=== PATIENT | male | born 1945 | race Caucasian/White ===

== ENCOUNTER 2022-12-19 00:10 | Emergency (ER) | payer MEDICARE, BC ==
[~2022-12-19] VITALS: Ht 185.4 cm; Wt 117.9 kg
--- NOTE | 2022-12-19 00:19 | NUR ---
BIBPA FROM SNF FOR K+ LEVEL OF 6. PT AAOX4, IN NAD. PLACED COMFORTABLY IN BED, VITALS CHECKED.
--- NOTE | 2022-12-19 00:40 | NUR ---
STROBOROMA OPERATOR AT PT'S BEDSIDE
[2022-12-19 02:09] LABS: CALCIUM, SERUM 9.1 mg/dL (8.5-10.1); CREATININE 1.2 mg/dL (0.6-1.3)
--- NOTE | 2022-12-19 02:19 | NUR ---
REPORT GIVEN TO MAGDY FROM [facility]
--- NOTE | 2022-12-19 02:19 | NUR ---
[facility] ETA CALLED ETA 75-90 MINUTES.
--- NOTE | 2022-12-19 04:09 | NUR ---
REPORT GIVEN TO BHARAT Ortiz/ [facility]
[2022-12-19 04:26] VITALS: BP 124/77
== END 2022-12-19 04:27 ==
LOC: ER 00:13
DX: Z71.1 Person with feared health complaint in whom no diagnosis is made (principal)
CPT/HCPCS: 36415; 80048-TC

== ENCOUNTER 2023-01-07 15:13 | Inpatient (IN) | payer MEDICARE, BC ==
[~2023-01-07] VITALS: Ht 185.4 cm; Wt 123.5 kg
--- NOTE | 2023-01-07 15:26 | NUR ---
CALLED [facility] [phone] PER KOFI PT DISCHARGED ON December TO [facility]. [phone] [id number] [facility] [place]
--- NOTE | 2023-01-07 15:28 | NUR ---
CALLED [facility]. [facility] [phone] [id number] [place], [place]
--- NOTE | 2023-01-07 15:36 | NUR ---
, KWADWO WEBER [phone]
[2023-01-07] MEDS ORDERED: MULT-447 PO (15:38)
[2023-01-07] MEDS ORDERED: WARF3TAB59 PO (15:38)
[2023-01-07] MEDS ORDERED: CICL6.6S5 TP (15:38)
[2023-01-07] MEDS ORDERED: PREG-57 PO (15:38)
[2023-01-07] MEDS ORDERED: MAG30ORA PO (15:38)
[2023-01-07] MEDS ORDERED: AMIN30LI2 PO (15:38)
[2023-01-07] MEDS ORDERED: INSU100V7 SQ (15:38)
[2023-01-07] MEDS ORDERED: FURO-145 PO (15:38)
[2023-01-07] MEDS ORDERED: ACET-868 PO (15:38)
[2023-01-07] MEDS ORDERED: FAMO20TA8 PO (15:38)
[2023-01-07] MEDS ORDERED: OXYC15TA2 PO (15:38)
[2023-01-07] MEDS ORDERED: INSU100V27 SQ ×2 (15:38)
[2023-01-07] MEDS ORDERED: TAMS-12 PO (15:38)
[2023-01-07] MEDS ORDERED: GLUC1KIT IM (15:38)
[2023-01-07] MEDS ORDERED: DIPH25CA51 PO (15:38)
[2023-01-07] MEDS ORDERED: POLY15DR40 EACHEYE (15:38)
[2023-01-07] MEDS ORDERED: ECON30CR4 TD (15:38)
[2023-01-07] MEDS ORDERED: AMIO200T5 PO (15:38)
[2023-01-07 16:46] LABS: BASOPHILS # (AUTO) 0.1 K/uL (0.0-0.2); BASOPHILS % (AUTO) 1.2 % (0.0-2.0); HEMATOCRIT 37 % (39-51); HEMOGLOBIN 11.7 g/dL (13.5-17.5); LYMPHOCYTES # (AUTO) 1.2 K/uL (0.8-4.8); LYMPHOCYTES % (AUTO) 11.4 % (20.0-44.0); MEAN CORPUSCULAR HGB CONC 32 g/dl (31.0-36.0); MEAN CORPUSCULAR VOLUME 93 fL (80-96); MONOCYTES # (AUTO) 0.7 K/uL (0.1-1.30); MONOCYTES % (AUTO) 6.3 % (2.0-12.0); NEUTROPHILS # (AUTO) 8.5 K/uL (1.8-8.9); NEUTROPHILS % (AUTO) 79.1 % (43.0-81.0); PLATELET COUNT (AUTO) 347 K/uL (150-450); RED BLOOD CELL COUNT(AUTO) 3.99 MIL/uL (4.5-6.0); WHITE BLOOD COUNT (AUTO) 10.8 K/uL (4.3-11.0)
[2023-01-07 16:50] LABS: CALCIUM, SERUM 8.8 mg/dL (8.5-10.1); CARBON DIOXIDE 28 mmol/L (21-32); CHLORIDE 105 mmol/L (98-107); CREATININE 1.1 mg/dL (0.6-1.3); GLUCOSE 195 mg/dL (74-106); SODIUM SERUM 137 mmol/L (136-145); UREA NITROGEN, BLOOD 35 mg/dL (7-18)
[2023-01-07 17:42] LABS: POTASSIUM 5.1 mmol/L (3.5-5.1)
[2023-01-07 17:44] LABS: ALANINE AMINOTRANSFERASE 37 U/L (12-78); ALKALINE PHOSPHATASE 106 U/L (46-116); ASPARTATE AMINOTRANSFERASE 30 U/L (15-37); BILIRUBIN,DIRECT 0.2 mg/dL (0.0-0.2); BILIRUBIN,TOTAL 0.5 mg/dL (0.2-1.0)
[2023-01-07 17:45] LABS: ALBUMIN 2.8 g/dL (3.4-5.0); TOTAL PROTEIN, SERUM 6.4 g/dL (6.4-8.2)
[2023-01-07] MEDS ORDERED: FUROSEMIDE 40 MG/4 ML VIAL IV ONE (18:30)
[2023-01-07] MEDS ORDERED: ENOXAPARIN SODIUM 60 MG/0.6 ML DISP.SYRIN SQ ONE ×2 (18:30→18:50)
[2023-01-07] MEDS ORDERED: FUROSEMIDE 40 MG/4 ML VIAL ONE (18:50)
--- NOTE | 2023-01-07 19:03 | NUR ---
Simple Mask titrated down to 6L
[2023-01-07] MEDS ORDERED: Z GUARD REMEDY 4 OZ OINT TP PRN (19:30)
[2023-01-07] MEDS ORDERED: ZOLPIDEM TARTRATE 5 MG TABLET PO PRN (19:30)
[2023-01-07] MEDS ORDERED: ASPIRIN 300 MG/SUPP.RECT RC SCH (19:30)
[2023-01-07] MEDS ORDERED: ACETAMINOPHEN 325 MG TABLET PO PRN (19:30)
[2023-01-07] MEDS ORDERED: ONDANSETRON HCL/PF 4 MG/2 ML VIAL IVP PRN (19:30)
--- NOTE | 2023-01-07 21:02 | NUR ---
report given to rn
--- NOTE | 2023-01-07 21:40 | NUR ---
ADMISSION NOTES, RECEIVED PATIENT FROM ER DEPARTMENT VIA GURNEY ACCOMPANIED BY 2 NURSES, PATIENT AWAKE A/0 X2, [facility] WITH ADMITTING DX, NSTEMI, DENIES ANY CHEST PAIN AT THIS TIME, PATIENT AT 8L VIA SIMPLE MASK, NO SOB AT REST BUT SOB AT EXERTION, AFEBRILE ATTACHED TO TELE MONITOR, IV SITE LEFT AV 20G, PATENT AND INTACT, COLOSTOMY IN PLACE IN LEFT UPPER QUADRANT WITH SEMI LIQUID YELLOW STOOL, NOTED WITH MID ABDOMINAL INCISION HEALED SEMI OPEN SKIN, BILATERAL LE CABS AND REDNESS, + 4 EDEMA ALS O NOTED, BILATERAL REDNESS IN BUTTOCK, PT STATED IS BECAUSE THE COMMODE, LEFT FORE ARM SKIN TEAR 10 INCH DIEGO, HE STATED HE HAD A FALL, HEELS DRYNESS AND PEELING SKIN NOTED, LEFT GROIN/PERINEAL REDNESS BLEEDING,RIGHT FOOT THIRD TOE MISSING NAIL, LEFT UNDER BREAST FOLD REDNESS PLEASE REFER TO ADMISSION PICTURES, AFEBRILE WITH STABLE VITAL SINGS, O2 94% AT 8L SIMPLE MASK, WOUND CONSULT TO FOLLOW WITH SKIN ISSUES, PATIENT DOES NOT REMEMBER FROM WHICH FACILITY HE CAME, ACCORDING TO REPORT FROM ER AN INDIVIDUAL LEFT PATIENT IN WAITING ROOM AND TOOK OFF IMMEDIATELY, BED BATH GIVEN UPON ADMISSION, WILL CONTINUE TO MONITOR CLOSELY.
--- NOTE | 2023-01-07 21:50 | NUR ---
PATIENT SINUS RHYTHM/SINUS MARY WITH OCCASIONAL PACS.
[2023-01-07] MEDS: ATORVASTATIN 10 MG TABLET PO SCH (22:09)
--- NOTE | 2023-01-07 23:48 | NUR ---
RELAYED TROPONIN LEVELS TO LEONARDA MORALES AT THIS TIME, TROP: 144
--- NOTE | 2023-01-08 07:00 | NUR ---
GARNETT FEEDER CLOSING NOTE PT RESTING IN BED, ASLEEP, EASY TO AROUSE, AFEBRILE, A&OX3, ABLE TO MAKE NEEDS KNOWN, BREATHING EVEN AND UNLABORED, ON 8L VIA SIMPLE MASK, COLOSTOMY BAG INTACT, YELLOW LIQUID STOOL NOTED, ALL DUE MEDS GIVEN PER MD ORDERS, TOLERATED WELL, ALL BASIC NEEDS MET AND ANTICIPATED, ALL SAFETY MEASURES ARE IN PLACE, CALL LIGHT WITH IN REACH WILL CONTINUE TO MONITOR
[2023-01-08 07:09] LABS: BASOPHILS # (AUTO) 0.1 K/uL (0.0-0.2); BASOPHILS % (AUTO) 0.7 % (0.0-2.0); EOSINOPHILS % (AUTO) 4.2 % (0.0-6.0); HEMATOCRIT 36 % (39-51); LYMPHOCYTES # (AUTO) 1.3 K/uL (0.8-4.8); LYMPHOCYTES % (AUTO) 16.5 % (20.0-44.0); MEAN CORPUSCULAR HGB CONC 30 g/dl (31.0-36.0); MEAN CORPUSCULAR VOLUME 96 fL (80-96); MONOCYTES # (AUTO) 0.9 K/uL (0.1-1.30); NEUTROPHILS # (AUTO) 5.2 K/uL (1.8-8.9); NEUTROPHILS % (AUTO) 66.6 % (43.0-81.0); PLATELET COUNT (AUTO) 300 K/uL (150-450); RED BLOOD CELL COUNT(AUTO) 3.79 MIL/uL (4.5-6.0); WHITE BLOOD COUNT (AUTO) 7.8 K/uL (4.3-11.0)
[2023-01-08 07:21] LABS: CALCIUM, SERUM 8.7 mg/dL (8.5-10.1); CARBON DIOXIDE 25 mmol/L (21-32); CHLORIDE 108 mmol/L (98-107); CREATININE 1.1 mg/dL (0.6-1.3); GLUCOSE 149 mg/dL (74-106); MAGNESIUM 2.5 mg/dL (1.8-2.4); PHOSPHORUS 3.5 mg/dL (2.5-4.9); POTASSIUM 4.9 mmol/L (3.5-5.1); SODIUM SERUM 138 mmol/L (136-145); UREA NITROGEN, BLOOD 35 mg/dL (7-18)
[2023-01-08 07:28] LABS: CHOLESTEROL 178 mg/dL (<200); HDL CHOLESTEROL 57 mg/dL (40-60); LDL 107 mg/dL (0-99); TRIGLYCERIDES 115 mg/dL (30-150)
--- NOTE | 2023-01-08 07:37 | NUR ---
FIRE MARSHAL REFINERY OPENING NOTE PATIENT RECEIVED IN BED SLEEPING. EASILY AROUSABLE. ON 8L VIA SIMPLE MASK WITH BREATHING EVEN AND UNLABORED AND NO S/S OF SOB OR RESPIRATORY DISTRESS AT REST. IV SITE ON LAC 20G, PATENT AND INTACT. COLOSTOMY IN PLACE IN LEFT UPPER QUADRANT WITH SEMI LIQUID YELLOW STOOL, Addendum: 01/08/23 at 0739 by ELLA HINDS RN PLEASE DISREGARD
--- NOTE | 2023-01-08 07:39 | NUR ---
RN HEART OPENING NOTE PATIENT RECEIVED IN BED SLEEPING. EASILY AROUSABLE. ON 8L VIA SIMPLE MASK WITH BREATHING EVEN AND UNLABORED AND NO S/S OF SOB OR RESPIRATORY DISTRESS AT REST. IV SITE ON LAC 20G, PATENT AND INTACT. COLOSTOMY IN PLACE IN LEFT UPPER QUADRANT WITH SEMI LIQUID YELLOW STOOL. SAFETY PRECAUTIONS IN PLACE WITH BED IN LOWEST LOCKED POSITION, SIDE RAILS UP X3, BED ALARM ON, AND CALL LIGHT AND TABLE WITHIN REACH. WILL CONTINUE TO MONITOR.
[2023-01-08 08:00] VITALS: BP 131/54
[2023-01-08] MEDS ORDERED: ASPIRIN 81 MG TAB.CHEW PO ONE (09:00)
[2023-01-08 12:00] VITALS: BP 135/69
[2023-01-08 16:00] VITALS: BP 114/60
[2023-01-08] MEDS: HYDROCODONE/APAP 5/325MG TABLET PO PRN ×2 (18:02→23:06)
[2023-01-08] MEDS: SERTRALINE HCL 25 MG TABLET PO SCH (18:03)
[2023-01-08] MEDS: ENOXAPARIN SODIUM 40 MG/0.4 ML DISP.SYRIN SQ SCH (18:06)
--- NOTE | 2023-01-08 19:32 | NUR ---
RN OPENING NOTES: RECEIVED PATIENT IN BED, AWAKE, ALERT AND ORIENTED X4 AND VERBALLY RESPONSIVE. ON 8L VIA SIMPLE MASK AND PT TOLERATED WELL. PT KEPT REMOVING HIS MASK. REQUEST PT NOT TO REMOVE HIS MASK. STILL BREATHING EVEN AND UNLABORED. IV ACCESS ON LAC #20G, INTACT AND PATENT.NO S/S OF INFILTRATIONS. NOTED COLOSTOMY IN PLACE AT LEFT UPPER QUADRANT WITH LIQUID YELLOW STOOL. NO C/O PAIN OR DISCOMFORT. NO ACUTE DISTRESS.ALL SAFETY PRECAUTIONS IN PLACE. BED IN LOWEST POSITION AND LOCKED. SIDE RAILS UP X3, BED ALARM ON, PLACE CALL LIGHT WITH IN REACH. WILL CONTINUE TO MONITOR
--- NOTE | 2023-01-08 19:38 | NUR ---
BACK UP MACHINE OPERATOR CLOSING NOTE PATIENT IN BED WATCHING TV. ALERT AND ORIENTED X4. ON 8L VIA SIMPLE MASK WITH BREATHING EVEN AND UNLABORED AND NO S/S OF SOB OR RESPIRATORY DISTRESS AT REST. IV SITE ON LAC 20G, PATENT AND INTACT. COLOSTOMY IN PLACE IN LEFT UPPER QUADRANT WITH SEMI LIQUID YELLOW STOOL. ALL DUE MEDS GIVEN AND PATIENT KEPT CLEAN AND COMORTABLE. SAFETY PRECAUTIONS IN PLACE WITH BED IN LOWEST LOCKED POSITION, SIDE RAILS UP X3, BED ALARM ON, AND CALL LIGHT AND TABLE WITHIN REACH. WILL ENDORSE TO ONCOMING SHIFT FOR ASHLEY.
--- NOTE | 2023-01-08 19:50 | NUR ---
RN NOTES: RECEIVED CRITICAL LAB RESULT. PT'S TROPONIN LEVEL 128 BEFORE IT WAS 141. TRENDING DOWN. WILL CONTINUE TO MONITOR
[2023-01-08 20:00] VITALS: BP 122/72
[2023-01-08] MEDS ORDERED: MUPIROCIN OINT 2% 22 GM TUBE NS SCH (21:00)
[2023-01-08] MEDS: ATORVASTATIN 10 MG TABLET PO SCH (22:21)
--- NOTE | 2023-01-08 23:09 | NUR ---
RN NOTES: PT C/O MODERATE GENERALIZED BODY PAIN, NORCO GIVEN PRN ORDERED. AMBIEN GIVEN FOR UNABLE TO SLEEP. WILL CONTINUE TO MONITOR
[2023-01-09] VITALS: BP 123/61
[2023-01-09 04:00] VITALS: BP 115/60
[2023-01-09] MEDS: HYDROCODONE/APAP 5/325MG TABLET PO PRN ×3 (06:03→21:47)
--- NOTE | 2023-01-09 06:47 | NUR ---
RN CLOSING NOTES: PATIENT IN BED, AWAKE, ALERT AND ORIENTED X4 AND VERBALLY RESPONSIVE. ON 8L VIA SIMPLE MASK AND PT TOLERATED WELL. O2 SAT 99%. BREATHING EVEN AND UNLABORED. IV ACCESS ON LAC #20G, INTACT AND PATENT.NO S/S OF INFILTRATIONS. NOTED COLOSTOMY IN PLACE AT LEFT UPPER QUADRANT WITH LIQUID YELLOW STOOL. 200CC OUTPUT. NORCO GIVEN FOR GENERALIZED BODY PAIN, HEADACHE. NO ACUTE DISTRESS. ALL DUE MEDS GIVEN ORDERED. ALL SAFETY PRECAUTIONS IN PLACE. BED IN LOWEST POSITION AND LOCKED. SIDE RAILS UP X3, BED ALARM ON, PLACE CALL LIGHT WITH IN REACH. WILL ENDORSE TO MORNING SHIFT NURSE.
--- NOTE | 2023-01-09 07:36 | NUR ---
CUSTOMER SERVICE MANAGER OPENING NOTE PATIENT RECEIVED IN BED SLEEPING. ON 8L VIA SIMPLE MASK WITH BREATHING EVEN AND UNLABORED. IV ACCESS ON LAC #20G, INTACT AND PATENT. NOTED COLOSTOMY IN PLACE AT LEFT UPPER QUADRANT WITH LIQUID YELLOW STOOL. ALL SAFETY PRECAUTIONS IN PLACE WITH BED IN LOWEST LOCKED POSITION, SIDE RAILS UP X3, BED ALARM ON, AND CALL LIGHT AND TABLE WITHIN REACH. WILL CONTINUE TO MONITOR.
[2023-01-09 08:00] VITALS: BP 134/70
--- NOTE | 2023-01-09 09:45 | NUR ---
POSITIVE FOR MRSA OF NARES ORDER FOR OINTMENT PLACED
--- NOTE | 2023-01-09 10:12 | NUR ---
WOUND CARE CONSULT: PT PRESENTS WITH MULTIPLE SKIN ISSUES INCLUDING SACRAL DEEP TISSUE INJURY, BILATERAL LOWER LEG REDNESS WITH PEELING SKIN TO LEFT HEEL, LEFT ARM LONG AREA OF EXCORIATION AND ABDOMINAL WOUND, ALL PRESENT ON ADMISSION. DISCUSSED SKIN PROTECTION AND WOUND CARE RECOMMENDATIONS WITH NURSING STAFF. DR GUY HORVATH CALLED FOR SURGICAL CONSULT AND DR PURI FOR DPM CONSULT. MD IN AGREEMENT WITH PLAN OF CARE. Addendum: 01/09/23 at 1015 by MAXIMO ALEGRE WNDNU Amended: Links added.
[2023-01-09 10:36] LABS: ABG BASE EXCESS 1.9 mmol/L; ABG OXYGEN SATURATION 98.6 % (92.0-98.5); ABG PCO2 53.8 mmHg (35.0-45.0); ABG PH 7.341 (7.350-7.450); ABG PO2 134.7 mmHg (75.0-100.0); AaDO2 233.9 mmHg; COHb 0.6 % (0.5-1.5); MetHb 0.3 % (0.0-1.5); O2Hb 97.7 % (94.0-97.0); SITE, ABG Right Radial; VENT MODE, BG 10 LPM SIMPLE MASK
[2023-01-09] MEDS: NEOMY SULF/BACITRAC ZN/POLY 15 GM TUBE TP SCH (11:05)
[2023-01-09] MEDS: MUPIROCIN OINT 2% 22 GM TUBE NS SCH ×2 (11:05→21:40)
[2023-01-09] MEDS: SILVER SULFADIAZINE CREAM 25 GM TUBE TP SCH (11:05)
[2023-01-09 12:00] VITALS: BP 118/71
[2023-01-09] MEDS ORDERED: diphenhydrAMINE HCL 25 MG CAPSULE PO PRN (12:30)
[2023-01-09] MEDS ORDERED: MAG HYDROX/AL HYDROX/SIMETH 30 ML UDC PO PRN (12:30)
[2023-01-09] MEDS ORDERED: DEXTROSE 50%-WATER 50 ML DISP.SYRIN IV PRN (12:30)
[2023-01-09] MEDS ORDERED: POLYVINYL ALCOHOL 15 ML BOTTLE EACHEYE PRN (12:30)
[2023-01-09 16:00] VITALS: BP 115/41
[2023-01-09] MEDS: CLOTRIMAZOLE 1% 15 GM TUBE TP SCH ×2 (17:00→21:40)
[2023-01-09] MEDS: SERTRALINE HCL 25 MG TABLET PO SCH (18:21)
[2023-01-09] MEDS: FUROSEMIDE 20 MG TABLET PO SCH (18:22)
[2023-01-09] MEDS: PREGABALIN 25 MG CAPSULE PO SCH (18:22)
[2023-01-09] MEDS: AMIODARONE HCL 200 MG TABLET PO SCH (18:22)
[2023-01-09] MEDS: FAMOTIDINE (20 MG) 20 MG TABLET PO SCH (18:22)
[2023-01-09] MEDS: ENOXAPARIN SODIUM 40 MG/0.4 ML DISP.SYRIN SQ SCH (18:24)
[2023-01-09] MEDS: ECONAZOLE NITRATE CREAM 15 GM TUBE TP SCH (18:32)
[2023-01-09] MEDS: BLOOD SUGAR DIAGNOSTIC 1 EACH STRIP IN SCH ×2 (18:33→21:48)
[2023-01-09] MEDS: INSULIN REGULAR, HUMAN 100 UNIT/ML 3 ML VIAL SQ PRN ×2 (18:34→21:50)
--- NOTE | 2023-01-09 19:42 | NUR ---
LEGISLATORS CLOSING NOTE PATIENT IN BED SLEEPING INTERMITTENTLY. ON 8L VIA SIMPLE MASK WITH BREATHING EVEN AND UNLABORED. IV ACCESS ON LAC #20G, INTACT AND PATENT. COLOSTOMY IN PLACE AT LEFT UPPER QUADRANT WITH LIQUID YELLOW STOOL. PUREWICK IN PLACE SUCTIONING JUANA COLORED URINE. ALL DUE MEDS GIVEN AND WOUND CARE PROVIDED. ALL SAFETY PRECAUTIONS IN PLACE WITH BED IN LOWEST LOCKED POSITION, SIDE RAILS UP X3, BED ALARM ON, AND CALL LIGHT AND TABLE WITHIN REACH. WILL ENDORSE TO ONCOMING SHIFT FOR ASHLEY.
[2023-01-09 20:00] VITALS: BP 126/51
[2023-01-09] MEDS: ATORVASTATIN 10 MG TABLET PO SCH (21:47)
[2023-01-09] MEDS: INSULIN GLARGINE, 100 UNIT/ML CARTRIDGE SQ SCH (21:49)
--- NOTE | 2023-01-09 21:51 | NUR ---
RN NOTES: PT C/O MODERATE GENERALIZED BODY PAIN, NORCO GIVEN. BLOOD SUGAR 113. NO COVERAGE NEEDED. LANTUS 10 UNITS GIVEN ORDERED. NO S/S OF HYPER/HYPOGLYCEMIA. WILL CONTINUE TO MONITOR
[2023-01-10] VITALS: BP 133/61
[2023-01-10 04:00] VITALS: BP 129/63
[2023-01-10] MEDS: HYDROCODONE/APAP 5/325MG TABLET PO PRN ×3 (04:37→23:02)
--- NOTE | 2023-01-10 06:44 | NUR ---
RN JANIS NOTES: PATIENT IN BED, AWAKE, ALERT AND ORIENTED X4 AND VERBALLY RESPONSIVE. ON 8L VIA SIMPLE MASK AND PT TOLERATED WELL. O2 SATURATION 96%. PT WAS INTERMITTENTLY REMOVING HIS MASK. PT WAS REMINDED NOT TO REMOVE HIS MASK. BREATHING EVEN AND UNLABORED. IV ACCESS ON LAC #20G, INTACT AND PATENT.NO S/S OF INFILTRATIONS. NOTED COLOSTOMY IN PLACE AT LEFT UPPER QUADRANT WITH LIQUID YELLOW STOOL. NO C/O PAIN OR DISCOMFORT. NO ACUTE DISTRESS.ALL SAFETY PRECAUTIONS IN PLACE. BED IN LOWEST POSITION AND LOCKED. SIDE RAILS UP X3, BED ALARM ON, PLACE CALL LIGHT WITH IN REACH. WILL ENDORSE TO THE NEXT SHIFT FOR ASHLEY.
--- NOTE | 2023-01-10 07:00 | NUR ---
RN OPENING NOTES PATIENT IN BED, AWAKE, ALERT AND ORIENTED X4 AND VERBALLY RESPONSIVE. ON 8L VIA SIMPLE MASK AND PT TOLERATED WELL. O2 SATURATION 96%. BREATHING EVEN AND UNLABORED. IV ACCESS ON LAC #20G, INTACT AND PATENT. NO S/S OF INFILTRATIONS. NOTED COLOSTOMY IN PLACE AT LEFT UPPER QUADRANT WITH LIQUID YELLOW STOOL. PATIENT DENIES ANY PAIN OR DISCOMFORT AT THIS TIME. ALL SAFETY PRECAUTIONS IN PLACE, BED IN LOWEST AND LOCKED POSITION, SIDE RAILS UP X3, BED ALARM ON, PLACE CALL LIGHT WITH IN REACH. WILL CONTINUE TO MONITOR.
[2023-01-10] MEDS: ECONAZOLE NITRATE CREAM 15 GM TUBE TP SCH ×2 (07:04→17:15)
[2023-01-10 08:00] VITALS: BP 129/58
[2023-01-10] MEDS: BLOOD SUGAR DIAGNOSTIC 1 EACH STRIP IN SCH ×4 (08:14→21:44)
[2023-01-10] MEDS: AMIODARONE HCL 200 MG TABLET PO SCH ×2 (08:42→16:27)
[2023-01-10] MEDS: FAMOTIDINE (20 MG) 20 MG TABLET PO SCH ×2 (08:42→16:25)
[2023-01-10] MEDS: MULTIVITAMINS,THERAGRAN 1 UDTAB TABLET PO SCH (08:42)
[2023-01-10] MEDS: TAMSULOSIN 0.4 MG CAP.SR.24H PO SCH (08:43)
[2023-01-10] MEDS: PREGABALIN 25 MG CAPSULE PO SCH ×2 (08:43→16:26)
[2023-01-10] MEDS: FUROSEMIDE 20 MG TABLET PO SCH ×2 (08:43→16:25)
[2023-01-10] MEDS: CLOTRIMAZOLE 1% 15 GM TUBE TP SCH ×4 (08:43→20:42)
--- NOTE | 2023-01-10 08:45 | NUR ---
RN NOTE RECEIVED VERBAL ORDERS FROM DOCTOR KAHN TO TITRATE OXYGEN FROM 8L/MIN. PATIENT ON NC AT 4L/MIN AND SATURATING AT 95%. PATIENT DENIES ANY SOB, OR DISTRESS AT THIS TIME. MD NOTIFIED.
[2023-01-10] MEDS: NEOMY SULF/BACITRAC ZN/POLY 15 GM TUBE TP SCH (09:19)
[2023-01-10] MEDS: SILVER SULFADIAZINE CREAM 25 GM TUBE TP SCH (09:19)
[2023-01-10] MEDS: MUPIROCIN OINT 2% 22 GM TUBE NS SCH ×2 (09:19→20:41)
[2023-01-10] MEDS: PROSOURCE / PROSTAT (PYXIS) 30 ML UDC PO SCH (09:20)
[2023-01-10] MEDS: methylPREDNISolone SOD SUCC 125 MG/2ML VIAL IV SCH ×2 (10:40→16:29)
[2023-01-10 12:00] VITALS: BP 113/69
[2023-01-10] MEDS: INSULIN REGULAR, HUMAN 100 UNIT/ML 3 ML VIAL SQ PRN ×3 (12:11→21:49)
[2023-01-10 16:00] VITALS: BP 145/69
[2023-01-10] MEDS: SERTRALINE HCL 25 MG TABLET PO SCH (16:43)
[2023-01-10] MEDS: WARFARIN SODIUM 2 MG TABLET PO SCH (16:47)
[2023-01-10] MEDS ORDERED: WARFARIN SODIUM 5 MG TABLET PO SCH (17:00)
[2023-01-10] MEDS ORDERED: WARFARIN SODIUM 1 MG TABLET PO SCH (17:00)
--- NOTE | 2023-01-10 19:04 | NUR ---
RN CLOSING NOTES PATIENT IN BED, AWAKE, ALERT AND ORIENTED X4 AND VERBALLY RESPONSIVE. ON 4L NS AND TOLERATED WELL. O2 SATURATION 98%. BREATHING EVEN AND UNLABORED. IV ACCESS ON LAC #20G, INTACT AND PATENT. NO S/S OF INFILTRATIONS. NOTED COLOSTOMY IN PLACE AT LEFT UPPER QUADRANT WITH LIQUID YELLOW STOOL. COLOSTOMY CARE WAS PROVIDED. PATIENT DENIES ANY PAIN OR DISCOMFORT AT THIS TIME. PATIENT WAS REPOSITIONED EVERY TWO HOURS. ALL SAFETY PRECAUTIONS IN PLACE, BED IN LOWEST AND LOCKED POSITION, SIDE RAILS UP X3, BED ALARM ON, PLACE CALL LIGHT WITH IN REACH. REPORT GIVEN TO HAND MITER OPERATOR NURSE FOR CONTINUING OF CARE.
--- NOTE | 2023-01-10 19:49 | NUR ---
RN OPENING NOTES: RECEIVED PATIENT IN BED, AWAKE, ALERT AND ORIENTED X4 AND VERBALLY RESPONSIVE. ON 4L VIA NC AND PT TOLERATED WELL. BREATHING EVEN AND UNLABORED. IV ACCESS ON LAC #20G, INTACT AND PATENT. NO S/S OF INFILTRATIONS. NOTED COLOSTOMY IN PLACE AT LEFT UPPER QUADRANT WITH LIQUID YELLOW STOOL. NO C/O PAIN OR DISCOMFORT. NO ACUTE DISTRESS. ALL SAFETY PRECAUTIONS IN PLACE. BED IN LOWEST POSITION AND LOCKED. SIDE RAILS UP X3, BED ALARM ON, PLACE CALL LIGHT WITH IN REACH. WILL CONTINUE TO MONITOR.
[2023-01-10 20:00] VITALS: BP 133/79
[2023-01-10] MEDS: IPRATROPIUM NEB FS 0.5 MG/2.5 ML AMPUL.NEB NEB SCH (20:19)
[2023-01-10] MEDS: ALBUTEROL HALF STRENGTH 1.25 MG/3 ML VIAL.NEB NEB SCH (20:19)
[2023-01-10] MEDS: ATORVASTATIN 10 MG TABLET PO SCH (21:15)
[2023-01-10] MEDS: INSULIN GLARGINE, 100 UNIT/ML CARTRIDGE SQ SCH (21:50)
--- NOTE | 2023-01-10 21:50 | NUR ---
RN NOTE BLOOD SUGAR 263. 6 UNITS OF REGULAR INSULIN GIVEN ACCORDING TO ACHS SLIDING SCALE, 10 UNITS OF LANTUS GIVEN. NO S/S OF HYPER/HYPOGLYCEMIA. WILL CONTINUE TO MONITOR
--- NOTE | 2023-01-10 23:10 | NUR ---
RN NOTES: PT C/O GENERALIZED BODY PAIN, 7/10 PAIN SCALE. NORCO GIVEN PRN ORDERED. WILL CONTINUE TO MONITOR
[2023-01-11] VITALS: BP 121/57
[2023-01-11] MEDS: ALBUTEROL HALF STRENGTH 1.25 MG/3 ML VIAL.NEB NEB SCH ×4 (01:30→19:43)
[2023-01-11] MEDS: IPRATROPIUM NEB FS 0.5 MG/2.5 ML AMPUL.NEB NEB SCH ×4 (01:30→19:43)
[2023-01-11 04:00] VITALS: BP 125/54
[2023-01-11] MEDS: HYDROCODONE/APAP 5/325MG TABLET PO PRN ×2 (04:00→21:04)
[2023-01-11] MEDS: ECONAZOLE NITRATE CREAM 15 GM TUBE TP SCH ×2 (06:03→17:07)
--- NOTE | 2023-01-11 06:50 | NUR ---
RN CLOSING NOTES PATIENT IN BED, AWAKE, ALERT AND ORIENTED X4 AND VERBALLY RESPONSIVE. ON 4L NC AND TOLERATED WELL. BREATHING EVEN AND UNLABORED, NO S/S OF RESPIRATORY DISTRESS. IV ACCESS ON LAC #20G, INTACT AND PATENT. NO S/S OF INFILTRATIONS. NOTED COLOSTOMY IN PLACE AT LEFT UPPER QUADRANT WITH LIQUID YELLOW STOOL. PATIENT DENIES ANY PAIN OR DISCOMFORT AT THIS TIME. ALL SAFETY PRECAUTIONS IN PLACE, BED IN LOWEST AND LOCKED POSITION, SIDE RAILS UP X3, BED ALARM ON, PLACE CALL LIGHT WITHIN REACH. WILL BE ENDORSED TO THE NEXT SHIFT.
--- NOTE | 2023-01-11 07:07 | NUR ---
RN OPENING NOTES PATIENT IN BED, AWAKE, ALERT AND ORIENTED X4 AND VERBALLY RESPONSIVE. ON 4L NS AND TOLERATED WELL. O2 SATURATION 97%. BREATHING EVEN AND UNLABORED. IV ACCESS ON LAC #20G, INTACT AND PATENT. NO S/S OF INFILTRATIONS. NOTED COLOSTOMY IN PLACE AT LEFT UPPER QUADRANT WITH LIQUID YELLOW STOOL. COLOSTOMY CARE WILL BE PROVIDED. PATIENT DENIES ANY PAIN OR DISCOMFORT AT THIS TIME. ALL SAFETY PRECAUTIONS IN PLACE, BED IN LOWEST AND LOCKED POSITION, SIDE RAILS UP X3, BED ALARM ON, PLACE CALL LIGHT WITHIN REACH. WILL CONTINUE TO MONITOR.
[2023-01-11] MEDS: BLOOD SUGAR DIAGNOSTIC 1 EACH STRIP IN SCH ×4 (07:38→22:43)
[2023-01-11] MEDS: INSULIN REGULAR, HUMAN 100 UNIT/ML 3 ML VIAL SQ PRN ×4 (07:42→20:54)
[2023-01-11 08:00] VITALS: BP 129/64
[2023-01-11] MEDS: NEOMY SULF/BACITRAC ZN/POLY 15 GM TUBE TP SCH (08:29)
[2023-01-11] MEDS: CLOTRIMAZOLE 1% 15 GM TUBE TP SCH ×4 (08:29→21:09)
[2023-01-11] MEDS: SILVER SULFADIAZINE CREAM 25 GM TUBE TP SCH (08:30)
[2023-01-11] MEDS: MUPIROCIN OINT 2% 22 GM TUBE NS SCH ×2 (08:30→21:09)
[2023-01-11] MEDS: PREGABALIN 25 MG CAPSULE PO SCH ×2 (08:55→16:32)
[2023-01-11] MEDS: FAMOTIDINE (20 MG) 20 MG TABLET PO SCH ×2 (08:55→16:33)
[2023-01-11] MEDS: MULTIVITAMINS,THERAGRAN 1 UDTAB TABLET PO SCH (08:55)
[2023-01-11] MEDS: methylPREDNISolone SOD SUCC 125 MG/2ML VIAL IV SCH ×2 (08:56→16:31)
[2023-01-11] MEDS: AMIODARONE HCL 200 MG TABLET PO SCH ×2 (08:56→16:31)
[2023-01-11] MEDS: TAMSULOSIN 0.4 MG CAP.SR.24H PO SCH (08:56)
[2023-01-11] MEDS: FUROSEMIDE 20 MG TABLET PO SCH ×2 (08:56→16:32)
[2023-01-11 09:05] LABS: CALCIUM, SERUM 9.1 mg/dL (8.5-10.1); CREATININE 0.8 mg/dL (0.6-1.3); POTASSIUM 4.8 mmol/L (3.5-5.1)
[2023-01-11] MEDS: PROSOURCE / PROSTAT (PYXIS) 30 ML UDC PO SCH (09:11)
[2023-01-11 12:00] VITALS: BP 138/52
[2023-01-11 16:00] VITALS: BP 121/67
[2023-01-11] MEDS: WARFARIN SODIUM 2 MG TABLET PO SCH (16:34)
[2023-01-11] MEDS: SERTRALINE HCL 25 MG TABLET PO SCH (16:40)
--- NOTE | 2023-01-11 17:06 | NUR ---
RN NOTE PATIENT COMPLAINING OF MILD BACK PAIN, TYLENOL GIVEN.
--- NOTE | 2023-01-11 19:00 | NUR ---
RN CLOSING NOTES PATIENT IN BED, AWAKE, ALERT AND ORIENTED X4 AND VERBALLY RESPONSIVE. ON 4L NS AND TOLERATED WELL. O2 SATURATION 96%. BREATHING EVEN AND UNLABORED. IV ACCESS ON LEFT WRIST #22G, INTACT AND PATENT. NO S/S OF INFILTRATIONS. NOTED COLOSTOMY IN PLACE AT LEFT UPPER QUADRANT WITH LIQUID YELLOW STOOL. COLOSTOMY CARE WAS PROVIDED. PATIENT DENIES ANY PAIN OR DISCOMFORT AT THIS TIME. ALL MEDICATIONS GIVEN. PATIENT WAS REPOSITIONED EVERY TWO HOURS. ALL SAFETY PRECAUTIONS IN PLACE, BED IN LOWEST AND LOCKED POSITION, SIDE RAILS UP X3, BED ALARM ON, CALL LIGHT AND TABLE WITHIN REACH. REPORT GIVEN TO NIGHT NURSE FOR CONTINUING OF CARE.
--- NOTE | 2023-01-11 19:30 | NUR ---
RN NOTES: RECEIVED PATIENT IN BED, AWAKE, ALERT AND ORIENTED X4 AND VERBALLY RESPONSIVE. ON 4L VIA NC AND PT TOLERATED WELL. BREATHING EVEN AND UNLABORED. IV ACCESS ON WRIST #22G, INTACT AND PATENT. NO S/S OF INFILTRATIONS. NOTED COLOSTOMY IN PLACE AT LEFT UPPER QUADRANT WITH LIQUID YELLOW STOOL. NO C/O PAIN OR DISCOMFORT. NO ACUTE DISTRESS. ALL SAFETY PRECAUTIONS IN PLACE. BED IN LOWEST POSITION AND LOCKED. SIDE RAILS UP X3, BED ALARM ON, PLACE CALL LIGHT WITH IN REACH. WILL CONTINUE TO MONITOR.
[2023-01-11 20:00] VITALS: BP 126/59
[2023-01-11] MEDS: ATORVASTATIN 10 MG TABLET PO SCH (21:05)
[2023-01-11] MEDS: INSULIN GLARGINE, 100 UNIT/ML CARTRIDGE SQ SCH (21:06)
--- NOTE | 2023-01-11 23:20 | NUR ---
RT Pt recvd at start of shift awake and verbal on 4 lpm NC . Neb tx given and mila well with no adverse reaction noted. Pt informed there is an order for NOC Bipap to use, Pt advised that he is refusing use of bipap at night. Also does not want the Q6 tx due at 01:30. seismograph supervisor informed.
[2023-01-12] VITALS: BP 131/77
[2023-01-12] MEDS: IPRATROPIUM NEB FS 0.5 MG/2.5 ML AMPUL.NEB NEB SCH ×4 (01:30→19:55)
[2023-01-12] MEDS: ALBUTEROL HALF STRENGTH 1.25 MG/3 ML VIAL.NEB NEB SCH ×4 (01:30→19:55)
[2023-01-12 04:00] VITALS: BP 132/75
--- NOTE | 2023-01-12 04:00 | NUR ---
RN NOTES PATIENT REFUSED TO BE CLEANED AND CHANGED. OFFER 3X STILL REFUSED RISK AND BENEFITS EXPLAINED
--- NOTE | 2023-01-12 07:00 | NUR ---
RN OPENING NOTES PATIENT IN BED, AWAKE, ALERT AND ORIENTED X4 AND VERBALLY RESPONSIVE. ON 4L NS AND TOLERATED WELL. O2 SATURATION 94%. BREATHING EVEN AND UNLABORED. IV ACCESS ON LEFT WRIST NIMISHA 22, INTACT AND PATENT. NO S/S OF INFILTRATIONS. NOTED COLOSTOMY IN PLACE AT LEFT UPPER QUADRANT WITH LIQUID YELLOW STOOL. COLOSTOMY CARE WILL BE PROVIDED. PATIENT DENIES ANY PAIN OR DISCOMFORT AT THIS TIME. ALL SAFETY PRECAUTIONS IN PLACE, BED IN LOWEST AND LOCKED POSITION, SIDE RAILS UP X3, BED ALARM ON, PLACE CALL LIGHT WITHIN REACH. WILL CONTINUE TO MONITOR.
[2023-01-12] MEDS: ECONAZOLE NITRATE CREAM 15 GM TUBE TP SCH ×2 (07:51→17:55)
[2023-01-12 08:00] VITALS: BP 126/78
[2023-01-12] MEDS: BLOOD SUGAR DIAGNOSTIC 1 EACH STRIP IN SCH ×4 (08:00→22:08)
[2023-01-12] MEDS: MUPIROCIN OINT 2% 22 GM TUBE NS SCH ×2 (08:22→22:07)
[2023-01-12] MEDS: CLOTRIMAZOLE 1% 15 GM TUBE TP SCH ×4 (08:22→22:08)
[2023-01-12] MEDS: NEOMY SULF/BACITRAC ZN/POLY 15 GM TUBE TP SCH (08:23)
[2023-01-12] MEDS: SILVER SULFADIAZINE CREAM 25 GM TUBE TP SCH (08:23)
[2023-01-12] MEDS: PREGABALIN 25 MG CAPSULE PO SCH ×2 (08:31→18:00)
[2023-01-12] MEDS: MULTIVITAMINS,THERAGRAN 1 UDTAB TABLET PO SCH (08:31)
[2023-01-12] MEDS: FUROSEMIDE 20 MG TABLET PO SCH ×2 (08:31→18:00)
[2023-01-12] MEDS: TAMSULOSIN 0.4 MG CAP.SR.24H PO SCH (08:31)
[2023-01-12] MEDS: FAMOTIDINE (20 MG) 20 MG TABLET PO SCH ×2 (08:31→18:01)
[2023-01-12] MEDS: methylPREDNISolone SOD SUCC 125 MG/2ML VIAL IV SCH (08:31)
[2023-01-12] MEDS: AMIODARONE HCL 200 MG TABLET PO SCH ×2 (08:31→18:00)
--- NOTE | 2023-01-12 08:44 | NUR ---
RN NOTE DOCTOR WADE BERNAL AT BED SIDE, RECEIVED ORDERS TO TITRATE NC FROM 4L/MIN TO 2 L/MIN. WILL CONTINUE TO MONITOR.
[2023-01-12] MEDS: PROSOURCE / PROSTAT (PYXIS) 30 ML UDC PO SCH (08:46)
[2023-01-12 09:31] LABS: ABG BASE EXCESS 4.5 mmol/L; ABG OXYGEN SATURATION 94.3 % (92.0-98.5); ABG PCO2 44.3 mmHg (35.0-45.0); ABG PH 7.438 (7.350-7.450); ABG PO2 69.8 mmHg (75.0-100.0); AaDO2 77.6 mmHg; COHb 0.3 % (0.5-1.5); MetHb 0.2 % (0.0-1.5); O2Hb 93.8 % (94.0-97.0); SITE, ABG Right Radial
--- NOTE | 2023-01-12 09:52 | NUR ---
RN NOTE RECEIVED ARTERIAL BLOOD GASSES RESULTS FROM RT, RESULTS SENT TO DOCTOR FRIEDA HARRIS. ALSO WAS NOTIFIED THAT PATIENT HAS BEEN REFUSING NIGHT BIPAP AND PER DOCTOR WADE BERNAL, NC WAS TITRATED FROM 4L/MIN TO 2 L/MIN AND CURRENT 02 SAT AT 95%. NO NEW ORDERS RECEIVED.
--- NOTE | 2023-01-12 11:25 | NUR ---
RN NOTE VERBAL ORDER RECEIVED FROM JIMBO ALSTON DIESEL MECHANIC FOR ORTHOSTATIC BLOOD PRESSURE READING. RESULTS, IN BED 139/68 HR 70, SITTING 120/61 HR 86, STANDING UP 148/63 HR 70. VERBAL RESULTS WERE GIVEN BACK TO DIESEL MECHANIC. Addendum: 01/12/23 at 1129 by BRANT LUCAS RN WRONG PATIENT.
[2023-01-12 12:00] VITALS: BP 136/71
[2023-01-12] MEDS: INSULIN REGULAR, HUMAN 100 UNIT/ML 3 ML VIAL SQ PRN ×3 (12:12→22:15)
[2023-01-12 16:00] VITALS: BP 127/83
[2023-01-12] MEDS: WARFARIN SODIUM 2 MG TABLET PO SCH (18:00)
[2023-01-12] MEDS: SERTRALINE HCL 25 MG TABLET PO SCH (18:01)
[2023-01-12] MEDS: HYDROCODONE/APAP 5/325MG TABLET PO PRN (18:04)
--- NOTE | 2023-01-12 18:31 | NUR ---
RN NOTE PATIENT WAS CLEARED FOR DC, NOW COMPLAINING OF GENERALIZED PAIN / NORCO GIVEN, WADE BERNAL TRUER PINION AND WHEEL NOTIFIED. PER WADE TRUER PINION AND WHEEL, PATIENT CAN STAY IN HOSPITAL AND OTHER ORDERS RECEIVED.
--- NOTE | 2023-01-12 19:49 | NUR ---
RN CLOSING NOTES PATIENT IN BED, AWAKE, ALERT AND ORIENTED X4 AND VERBALLY RESPONSIVE. ON 2L NC AND TOLERATED WELL. O2 SATURATION 95%. BREATHING EVEN AND UNLABORED. IV ACCESS ON LEFT WRIST #22G, INTACT AND PATENT. NO S/S OF INFILTRATIONS. COLOSTOMY BAG CHANGED TODAY, IN PLACE AT LEFT UPPER QUADRANT WITH LIQUID YELLOW STOOL. PATIENT WAS GIVEN NORCO, UPON REASSESSMENT,M PATIENT STATES THAT PAIN HAS DECREASED TO A COMFORTABLE STATE RATING ABOUT 2 TO 3. ALL MEDICATIONS GIVEN. PATIENT WAS REPOSITIONED EVERY TWO HOURS. ALL SAFETY PRECAUTIONS IN PLACE, BED IN LOWEST AND LOCKED POSITION, SIDE RAILS UP X3, BED ALARM ON, CALL LIGHT AND TABLE WITHIN REACH. REPORT GIVEN TO NIGHT NURSE FOR CONTINUING OF CARE.
--- NOTE | 2023-01-12 19:59 | NUR ---
RCVD PT ON 2L NC , PT IS AWAKE AND ALERT. INFORMED THE PT THAT THERE'S AN ORDER FOR NOC BIPAP AND EXPLAINED THE BENEFITS OF BIPAP. PT PLACED ON NOC BIPAP 15/5,RATE 16, FIO2 35%. BREATHING TX GIVEN PER MD'S ORDER. NO ADVERSE REACTION NOTED. NO RESPIRATORY DISTRESS NOTED AT THIS TIME,. BIPAP PLUGGED INTO RED OUTLET. ALARMS ON AND AUDIBLE. WILL CONTINUE TO MONITOR T/O SHIFT.
[2023-01-12 20:00] VITALS: BP 103/57
--- NOTE | 2023-01-12 20:03 | NUR ---
RN OPENING NOTE PATIENT AWAKE IN BED. A/OX3. NO S/S OF DISTRESS, BREATHING WITHOUT DIFFICULTY ON 2L NC. L-WRIST #22 SL INTACT AND PATENT. SAFETY MEASURES IN PLACE; BED LOCKED AND AT LOWEST POSITION, RAILS UP X2, CALL DOVER WITHIN REACH. WILL CONTINUE TO MONITOR PATIENT.
[2023-01-12] MEDS: ATORVASTATIN 10 MG TABLET PO SCH (22:06)
[2023-01-12] MEDS: INSULIN GLARGINE, 100 UNIT/ML CARTRIDGE SQ SCH (22:14)
[2023-01-13] VITALS (25 sets, daily range): BP systolic 85–134; BP diastolic 57–81
[2023-01-13] MEDS: ALBUTEROL HALF STRENGTH 1.25 MG/3 ML VIAL.NEB NEB SCH ×4 (01:16→19:54)
[2023-01-13] MEDS: IPRATROPIUM NEB FS 0.5 MG/2.5 ML AMPUL.NEB NEB SCH ×4 (01:17→19:54)
--- NOTE | 2023-01-13 03:37 | NUR ---
PT REMOVED BIPAP MASK AND REFUSED TO PLACE IT BACK. PLACED ON 2L NC, RN MIKEY AWARE. NO RESPIRATORY DISTRESS NOTED AT THIS TIME
[2023-01-13] MEDS: HYDROCODONE/APAP 5/325MG TABLET PO PRN ×2 (04:44→08:29)
--- NOTE | 2023-01-13 06:36 | NUR ---
RN CLOSING NOTE PATIENT AWAKE IN BED. NO S/S OF DISTRESS, BREATHING WITHOUT DIFFICULTY ON 4L NC. L-WRIST #22 SL INTACT AND PATENT. SAFETY MEASURES IN PLACE: BED LOCKED AND AT LOWEST POSITION, RAILS UP X2, CALL DOVER WITHIN REACH. WILL ENDORSE TO NEXT SHIFT FOR ASHLEY.
--- NOTE | 2023-01-13 07:23 | NUR ---
RN OPENING NOTE PATIENT E IN BED. A/OX1, CONFUSED . NO S/S OF DISTRESS, BREATHING WITHOUT DIFFICULTY ON 4L VIA NC OF O2 , O2 SAT 98 % L-WRIST #22 SL INTACT AND PATENT. SAFETY MEASURES IN PLACE; BED LOCKED AND AT LOWEST POSITION, RAILS UP X2, CALL DOVER WITHIN REACH. WILL CONTINUE TO MONITOR PATIENT.
[2023-01-13] MEDS: ECONAZOLE NITRATE CREAM 15 GM TUBE TP SCH ×2 (07:29→17:10)
[2023-01-13] MEDS: BLOOD SUGAR DIAGNOSTIC 1 EACH STRIP IN SCH ×4 (07:34→23:00)
[2023-01-13] MEDS: INSULIN REGULAR, HUMAN 100 UNIT/ML 3 ML VIAL SQ PRN ×3 (07:35→23:05)
[2023-01-13] MEDS: MUPIROCIN OINT 2% 22 GM TUBE NS SCH ×2 (08:23→21:03)
[2023-01-13] MEDS: CLOTRIMAZOLE 1% 15 GM TUBE TP SCH ×4 (08:24→21:03)
[2023-01-13] MEDS: AMIODARONE HCL 200 MG TABLET PO SCH ×2 (08:28→17:00)
[2023-01-13] MEDS: FAMOTIDINE (20 MG) 20 MG TABLET PO SCH ×2 (08:29→17:00)
[2023-01-13] MEDS: TAMSULOSIN 0.4 MG CAP.SR.24H PO SCH (08:29)
[2023-01-13] MEDS: PREGABALIN 25 MG CAPSULE PO SCH ×2 (08:29→17:00)
[2023-01-13] MEDS: FUROSEMIDE 20 MG TABLET PO SCH (08:29)
[2023-01-13] MEDS: MULTIVITAMINS,THERAGRAN 1 UDTAB TABLET PO SCH (08:29)
[2023-01-13] MEDS: PROSOURCE / PROSTAT (PYXIS) 30 ML UDC PO SCH (08:30)
[2023-01-13] MEDS: NEOMY SULF/BACITRAC ZN/POLY 15 GM TUBE TP SCH (08:31)
[2023-01-13] MEDS: SILVER SULFADIAZINE CREAM 25 GM TUBE TP SCH (08:32)
[2023-01-13] MEDS ORDERED: predniSONE 20 MG TABLET PO SCH (09:00)
[2023-01-13 10:06] LABS: ABG BASE EXCESS 4.3 mmol/L; ABG OXYGEN SATURATION 88.9 % (92.0-98.5); ABG PCO2 51.5 mmHg (35.0-45.0); ABG PH 7.388 (7.350-7.450); ABG PO2 55.5 mmHg (75.0-100.0); AaDO2 83.4 mmHg; COHb 1.1 % (0.5-1.5); MetHb 0.2 % (0.0-1.5); O2Hb 87.7 % (94.0-97.0); SITE, ABG Left Brachial; VENT MODE, BG NASAL CANNULA
--- NOTE | 2023-01-13 10:40 | NUR ---
pt. transferred to icu and placed into bipap due to labored breathing. Addendum: 01/13/23 at 1042 by SOREN AYALA RT Amended: Links added.
[2023-01-13 10:43] LABS: CALCIUM, SERUM 9.3 mg/dL (8.5-10.1); CARBON DIOXIDE 30 mmol/L (21-32); CHLORIDE 101 mmol/L (98-107); CREATININE 1.4 mg/dL (0.6-1.3); GLUCOSE 198 mg/dL (74-106); SODIUM SERUM 137 mmol/L (136-145); UREA NITROGEN, BLOOD 47 mg/dL (7-18)
--- NOTE | 2023-01-13 10:48 | NUR ---
RN NOTE PATIENT DEVELOPED LABOR BREATHING AND WAS TRANSFERED TO ICU . REPORT WAS GIVEN AT THE BED SIDE TO THE SAKINA VERA
[2023-01-13 10:50] LABS: BASOPHILS # (AUTO) 0.1 K/uL (0.0-0.2); BASOPHILS % (AUTO) 0.6 % (0.0-2.0); EOSINOPHILS % (AUTO) 0.1 % (0.0-6.0); HEMATOCRIT 36 % (39-51); HEMOGLOBIN 11.2 g/dL (13.5-17.5); LYMPHOCYTES # (AUTO) 0.7 K/uL (0.8-4.8); LYMPHOCYTES % (AUTO) 2.8 % (20.0-44.0); MEAN CORPUSCULAR HGB CONC 31 g/dl (31.0-36.0); MEAN CORPUSCULAR VOLUME 92 fL (80-96); MONOCYTES # (AUTO) 0.4 K/uL (0.1-1.30); MONOCYTES % (AUTO) 1.6 % (2.0-12.0); NEUTROPHILS % (AUTO) 94.9 % (43.0-81.0); PLATELET COUNT (AUTO) 281 K/uL (150-450); RED BLOOD CELL COUNT(AUTO) 3.95 MIL/uL (4.5-6.0); WHITE BLOOD COUNT (AUTO) 23.2 K/uL (4.3-11.0)
--- NOTE | 2023-01-13 11:00 | NUR ---
OUTSIDE OPERATOR NOTE patient is transferred to ICU for increased respiratory effort and rescue BiPAP. GCS E3V2M5. automation machine operator showed AF HR 120-128/min, BP 95/57mmHg. BiPAP is initiated, SpO2 95% with FiO2 40%. Will monitor ABG trend. Rosado is inserted to monitor urine output.
--- NOTE | 2023-01-13 11:33 | NUR ---
HANDTOOLS REPAIRER NOTE Notified by lab that patient's procalcitonin is 20. Informed ADOLESCENT COORDINATOR Rikki Martinez, who said to keep observation, considering the fact that patient aspirated last night and he is on zosyn.
[2023-01-13] MEDS: PIPERACILLIN /TAZOBACTAM 3.375 G in IV D5W 50 ML IV SCH ×3 (12:47→23:00)
[2023-01-13] MEDS: ACETAMINOPHEN 650 MG/SUPP.RECT RC PRN ×2 (13:40→19:45)
--- NOTE | 2023-01-13 16:07 | NUR ---
RETAIL ATTENDANT NOTE Noted that patient's urine output has been borderline(25mL/hr). Informed GANDY DANCER Rikki, who said to switch oral furosemide to IV furosemide with the same dose. Done as ordered. WIll monitor urine output.
[2023-01-13] MEDS: SERTRALINE HCL 25 MG TABLET PO SCH (17:00)
[2023-01-13] MEDS ORDERED: FUROSEMIDE 20 MG/2 ML VIAL IV SCH (17:00)
--- NOTE | 2023-01-13 18:13 | NUR ---
CLINICAL ASSOCIATE NOTE Patient's blood pressure drops to 85/59mmHg(MAP 68mmHg). Informed INDUSTRIAL LABORER Rikki, who ordered levophed. Temperature remains 103 frahenheit, cold bed bath is given and changed all the ice packs.
[2023-01-13] MEDS ORDERED: NOREPINEPHRINE 32 MG in IV NS 0.9% 218 ML IV PRN (18:30)
[2023-01-13] MEDS ORDERED: NOREPINEPHRINE 8 MG in IV NS 0.9% 242 ML IV PRN (18:30)
[2023-01-13] MEDS ORDERED: DEXTROSE 50%-WATER 50 ML DISP.SYRIN IV PRN (18:30)
[2023-01-13] MEDS: NOREPINEPHRINE 32 MG in IV NS 0.9% 218 ML IV PRN (18:39)
[2023-01-13] MEDS: ATORVASTATIN 10 MG TABLET PO SCH (21:04)
--- NOTE | 2023-01-13 21:20 | NUR ---
ICU/RN: MIDLINE NURSE AT BEDSIDE TO PLACE MIDLINE. PLACED RIGHT UPPER ARM. PT TOLERATED WELL.
[2023-01-13] MEDS: INSULIN GLARGINE, 100 UNIT/ML CARTRIDGE SQ SCH (22:00)
--- NOTE | 2023-01-13 23:30 | NUR ---
ICU/RN: PT NOTED STILL HAVING ELEVATED TEMP 103.3 AXILLARY. DOES NOT SEEM TO RESPOND TO TYLENOL. SPOKE WITH LILLIAN REYES. COOLING BLANKET AND CONTINUOS RECTAL TEMP MONITORING INITIATED.
[2023-01-14] VITALS (89 sets, daily range): BP systolic 64–126; BP diastolic 53–102
[2023-01-14] MEDS: ALBUTEROL HALF STRENGTH 1.25 MG/3 ML VIAL.NEB NEB SCH ×4 (01:21→20:00)
[2023-01-14] MEDS: IPRATROPIUM NEB FS 0.5 MG/2.5 ML AMPUL.NEB NEB SCH ×4 (01:21→20:00)
--- NOTE | 2023-01-14 02:03 | NUR ---
ICU/RN: I WITNESSED PT HAVING A GRAND MAL SEIZURE. LASTED 2 MINS. PT KEPT SAFE FOR DURATION. LILLIAN SANDOVAL PAGED AND WAS AT BEDSIDE FOR PT EVAL. NEW ORDERS RECEIVED AND CARRIED OUT.
[2023-01-14] MEDS: PHENYLEPHRINE 100 MG in IV NS 0.9% 240 ML IV PRN ×6 (02:23→20:38)
[2023-01-14] MEDS ORDERED: IV NS 0.9% 500 ML IV ONE (02:30)
[2023-01-14] MEDS ORDERED: LORAZEPAM INJ 2 MG/ML VIAL IV PRN (02:30)
--- NOTE | 2023-01-14 02:55 | NUR ---
MED NOTE: neosynephrine at max drip rate to support pt bp. new orders received for vasopressin.
[2023-01-14] MEDS ORDERED: VASOPRESSIN INJ 20 UNIT/ML VIAL ONE (02:57)
[2023-01-14] MEDS: VASOPRESSIN INJ 40 UNIT in IV NS 0.9% 38 ML IV PRN (03:00)
--- NOTE | 2023-01-14 04:15 | NUR ---
ICU/RN: LEVOPHED RESTARTED FOR BP SUPPORT.
[2023-01-14] MEDS: NOREPINEPHRINE 32 MG in IV NS 0.9% 218 ML IV PRN ×2 (04:16→12:45)
[2023-01-14 04:56] LABS: CALCIUM, SERUM 8.7 mg/dL (8.5-10.1); CARBON DIOXIDE 24 mmol/L (21-32); CHLORIDE 102 mmol/L (98-107); CREATININE 2.6 mg/dL (0.6-1.3); GLUCOSE 193 mg/dL (74-106); POTASSIUM 5.8 mmol/L (3.5-5.1); SODIUM SERUM 137 mmol/L (136-145); UREA NITROGEN, BLOOD 63 mg/dL (7-18)
[2023-01-14 04:59] LABS: BASOPHILS % (AUTO) 0.2 % (0.0-2.0); EOSINOPHILS % (AUTO) 3.4 % (0.0-6.0); HEMATOCRIT 39 % (39-51); HEMOGLOBIN 11.9 g/dL (13.5-17.5); LYMPHOCYTES % (AUTO) 4.5 % (20.0-44.0); MEAN CORPUSCULAR HGB CONC 31 g/dl (31.0-36.0); MEAN CORPUSCULAR VOLUME 91 fL (80-96); MONOCYTES # (AUTO) 0.7 K/uL (0.1-1.30); MONOCYTES % (AUTO) 3.3 % (2.0-12.0); NEUTROPHILS % (AUTO) 88.6 % (43.0-81.0); PLATELET COUNT (AUTO) 122 K/uL (150-450); RED BLOOD CELL COUNT(AUTO) 4.25 MIL/uL (4.5-6.0); WHITE BLOOD COUNT (AUTO) 21.5 K/uL (4.3-11.0)
[2023-01-14] MEDS: PIPERACILLIN /TAZOBACTAM 3.375 G in IV D5W 50 ML IV SCH ×4 (05:00→23:29)
--- NOTE | 2023-01-14 05:45 | NUR ---
ICU/RN: PT NOTED TO BE HAVING CLONIC TONIC SEIZURE WITH SPO2 DESATURATION TO THE 60s. FIO2 WAS INCREASED TO 100% AND ATIVAN WAS ADMINISTERED ORDERED. SEIZURE LASTED 2 MINS.
[2023-01-14] MEDS: INSULIN REGULAR, HUMAN 100 UNIT/ML 3 ML VIAL SQ PRN ×4 (06:13→23:12)
[2023-01-14] MEDS: BLOOD SUGAR DIAGNOSTIC 1 EACH STRIP IN SCH ×4 (06:13→23:20)
[2023-01-14] MEDS ORDERED: HYDROCORTISONE SOD SUCCINATE 100 MG/2 ML VIAL ONE (06:18)
[2023-01-14] MEDS ORDERED: HYDROCORTISONE SOD SUCCINATE 100 MG/2 ML VIAL IV SCH (06:30)
[2023-01-14] MEDS: IV NS 0.9% 1,000 ML IV PRN ×2 (06:35→11:41)
--- NOTE | 2023-01-14 07:16 | NUR ---
icu registered nurse note Patient's GCS E1V1M2, bilateral pupils 3mm PEARLA . equipment monitor phototypesetting showed AF with HR 120/min. BP 125/69mmHg with vasopressin, phenylephine and norepinephrine running at 0.03units/hr, 3mcg/kg/min and 0.2 mcg/kg/min respectively. Right UA ML is dry and intact, patent upon NS flush. SpO2 100% with 100% oxygen given via NIV. Rosado is in-situ, collecting yellowish fluid. Contacted RT for an ABG with respect to patient's decreasing GCS and increase use of BiPAP. Will continue monitoring and care.
[2023-01-14 07:36] LABS: ABG BASE EXCESS -1.6 mmol/L; ABG OXYGEN SATURATION 99.6 % (92.0-98.5); ABG PCO2 38.9 mmHg (35.0-45.0); ABG PH 7.391 (7.350-7.450); ABG PO2 350.2 mmHg (75.0-100.0); AaDO2 323.9 mmHg; COHb 0.6 % (0.5-1.5); MetHb 0.5 % (0.0-1.5); O2Hb 98.5 % (94.0-97.0); SITE, ABG Right Radial
[2023-01-14] MEDS: ECONAZOLE NITRATE CREAM 15 GM TUBE TP SCH ×2 (07:36→17:18)
--- NOTE | 2023-01-14 07:53 | NUR ---
BUSINESS SERVICES TECH NOTE Patient's condition updated with : that fever persists throughout the night and his blood pressure drops, requiring the use of vasopressors.
--- NOTE | 2023-01-14 09:25 | NUR ---
learning center coordinator note Patient was intubated under rapid sequence intubation. 100mg of etomidate and 50mg of rocuronium was administered at 0923 and patient was intubated at 0925. ETT size 7.5, marking at 23cm. Stat CXR was ordered.
--- NOTE | 2023-01-14 09:35 | NUR ---
RT PATIENT WAS ORALLY INTUBATED BY STEFANIE STILES WITH A 7.5 ETT AND SECURED AT 26CM AT THE LIP. PLACED ON [facility] VENT WITH SETTINGS PER . POSITIVE COLOR CHANGE ON CO2 DETECTOR. BILAT BREATH SOUNDS HEARD. VENT ALARMS CHECKED AND AUDIBLE. AMBU BAG AT HOB. Addendum: 01/14/23 at 1741 by RAUL GREENWOOD RT Amended: Links added.
--- NOTE | 2023-01-14 10:00 | NUR ---
HYDRO STATION SUPERVISOR NOTE - adjustment of ETT marking ETT was pushed in deeper to lip marking at 26cm. CXR confirmed placement. Good saturation.
--- NOTE | 2023-01-14 10:30 | NUR ---
DEFLASH AND WASH OPERATOR NOTE KYLE Caraballo inserted central catheter through left external jugular and and arterial line over left axilla. Good waveform was achieved over art-line and CVP was [id number].
[2023-01-14] MEDS ORDERED: SODIUM POLYSTYRENE SULF. PWD 15 GM UDC PO ONE (11:00)
--- NOTE | 2023-01-14 11:26 | NUR ---
INSTRUMENTATION AND CONTROLS DESIGNER NOTE Enquired Dr. Stevens about the need of maintainance fluid, considering patient's congested lungs , CVP being [id number] and urine output of 10-20mL/hr, he ordered NS at 75mL/hr after bolus fluids.
[2023-01-14] MEDS ORDERED: CELLULOSE,OXIDIZED 1 PKT EACH MC ONE ×2 (11:30→12:00)
[2023-01-14] MEDS ORDERED: PHARMACY TO CHANGE PO MEDS TO GT/NG XX PRN (11:30)
[2023-01-14] MEDS ORDERED: HYDROCODONE/APAP 5/325MG TABLET GT PRN (11:46)
[2023-01-14] MEDS ORDERED: MAG HYDROX/AL HYDROX/SIMETH 30 ML UDC GT PRN (11:46)
[2023-01-14] MEDS ORDERED: MULTIVITAMINS,THERAGRAN 1 UDTAB TABLET GT SCH (11:47)
[2023-01-14] MEDS: MUPIROCIN OINT 2% 22 GM TUBE NS SCH ×2 (11:50→21:37)
[2023-01-14] MEDS: NEOMY SULF/BACITRAC ZN/POLY 15 GM TUBE TP SCH (11:51)
[2023-01-14] MEDS: SILVER SULFADIAZINE CREAM 25 GM TUBE TP SCH (11:51)
[2023-01-14] MEDS: CLOTRIMAZOLE 1% 15 GM TUBE TP SCH ×4 (11:51→21:37)
[2023-01-14 12:56] LABS: BASOPHILS % (MANUAL) 0 % (0.0-2.0); EOSINOPHILS % (MANUAL) 4 % (0-4); LYMPHOCYTES % (MANUAL) 7 % (16-48); METAMYELOCYTES % 0 % (0-0); MONOCYTES % (MANUAL) 5 % (0-11.0); NEUTROPHILS % (MANUAL) 84 (42-76)
[2023-01-14] MEDS ORDERED: VANCOMYCIN 1.25 GM in IV D5W 250 ML IV ONE (13:00)
[2023-01-14] MEDS ORDERED: ETOMIDATE 2 MG/ML VIAL IV ONE (13:11)
[2023-01-14] MEDS ORDERED: ROCURONIUM BROMIDE 50 MG/5 ML IV ONE (13:11)
--- NOTE | 2023-01-14 14:10 | NUR ---
RN, GURDEEP AT BED SIDE. RN ASKED TO ATTEMPT THE US EXAM LATER.
[2023-01-14] MEDS: methylPREDNISolone SOD SUCC 40 MG/ML VIAL IV SCH ×2 (14:23→21:34)
--- NOTE | 2023-01-14 14:24 | NUR ---
ELEVATOR CONSTRUCTOR ELECTRIC NOTE Noted profuse oozing from left internal jugular central line despite the application of surgicell. Hemostasis is then achieved through direct pressure over the entry site of the line.
[2023-01-14] MEDS: PROPOFOL 100 ML IV PRN ×2 (16:00→21:28)
[2023-01-14] MEDS: ACETAMINOPHEN 650 MG/20.3 ML UDC GT PRN (16:57)
[2023-01-14] MEDS ORDERED: WARFARIN SODIUM 1 MG TABLET PO SCH (17:00)
[2023-01-14] MEDS ORDERED: SERTRALINE HCL 25 MG TABLET GT SCH (17:00)
[2023-01-14] MEDS ORDERED: IV NS 0.9% 1,000 ML IV PRN (17:00)
[2023-01-14] MEDS: PREGABALIN 25 MG CAPSULE GT SCH (17:00)
[2023-01-14] MEDS: FAMOTIDINE (20 MG) 20 MG TABLET GT SCH (17:01)
[2023-01-14] MEDS: AMIODARONE HCL 200 MG TABLET GT SCH (17:03)
[2023-01-14 18:03] LABS: HEMOGLOBIN 11.4 g/dL (13.5-17.5)
[2023-01-14] MEDS ORDERED: ATORVASTATIN 10 MG TABLET GT SCH (22:00)
[2023-01-14] MEDS: INSULIN GLARGINE, 100 UNIT/ML CARTRIDGE SQ SCH (22:00)
[2023-01-15] VITALS (66 sets, daily range): BP systolic 0–114; BP diastolic 0–87
[2023-01-15] MEDS: PHENYLEPHRINE 100 MG in IV NS 0.9% 240 ML IV PRN ×4 (01:09→14:57)
[2023-01-15] MEDS: IPRATROPIUM NEB FS 0.5 MG/2.5 ML AMPUL.NEB NEB SCH ×3 (01:49→13:16)
[2023-01-15] MEDS: ALBUTEROL HALF STRENGTH 1.25 MG/3 ML VIAL.NEB NEB SCH ×3 (01:49→13:16)
[2023-01-15] MEDS: PROPOFOL 100 ML IV PRN ×2 (02:06→06:50)
[2023-01-15] MEDS: ACETAMINOPHEN 650 MG/20.3 ML UDC GT PRN ×2 (02:52→07:41)
[2023-01-15] MEDS: methylPREDNISolone SOD SUCC 40 MG/ML VIAL IV SCH ×2 (04:30→12:45)
[2023-01-15 04:51] LABS: BASOPHILS # (AUTO) 0.1 K/uL (0.0-0.2); BASOPHILS % (AUTO) 0.4 % (0.0-2.0); EOSINOPHILS % (AUTO) 0.9 % (0.0-6.0); HEMATOCRIT 36 % (39-51); HEMOGLOBIN 11.3 g/dL (13.5-17.5); LYMPHOCYTES # (AUTO) 0.5 K/uL (0.8-4.8); LYMPHOCYTES % (AUTO) 3.5 % (20.0-44.0); MEAN CORPUSCULAR HGB CONC 31 g/dl (31.0-36.0); MEAN CORPUSCULAR VOLUME 90 fL (80-96); MONOCYTES # (AUTO) 0.6 K/uL (0.1-1.30); MONOCYTES % (AUTO) 4.5 % (2.0-12.0); NEUTROPHILS # (AUTO) 12.8 K/uL (1.8-8.9); NEUTROPHILS % (AUTO) 90.7 % (43.0-81.0); PLATELET COUNT (AUTO) 56 K/uL (150-450); RED BLOOD CELL COUNT(AUTO) 3.98 MIL/uL (4.5-6.0); WHITE BLOOD COUNT (AUTO) 14.1 K/uL (4.3-11.0)
[2023-01-15 05:16] LABS: CALCIUM, SERUM 7.5 mg/dL (8.5-10.1); CARBON DIOXIDE 19 mmol/L (21-32); CHLORIDE 103 mmol/L (98-107); CREATININE 3.4 mg/dL (0.6-1.3); SODIUM SERUM 138 mmol/L (136-145)
[2023-01-15 05:24] LABS: GLUCOSE 352 mg/dL (74-106); UREA NITROGEN, BLOOD 96 mg/dL (7-18)
[2023-01-15] MEDS: BLOOD SUGAR DIAGNOSTIC 1 EACH STRIP IN SCH ×2 (05:30→12:42)
[2023-01-15] MEDS: PIPERACILLIN /TAZOBACTAM 3.375 G in IV D5W 50 ML IV SCH (05:30)
[2023-01-15] MEDS: INSULIN REGULAR, HUMAN 100 UNIT/ML 3 ML VIAL SQ PRN ×2 (05:53→12:58)
[2023-01-15] MEDS: ECONAZOLE NITRATE CREAM 15 GM TUBE TP SCH ×2 (06:38→08:38)
[2023-01-15] MEDS: NOREPINEPHRINE 32 MG in IV NS 0.9% 218 ML IV PRN (07:35)
[2023-01-15] MEDS: AMIODARONE HCL 200 MG TABLET GT SCH (07:41)
--- NOTE | 2023-01-15 07:52 | NUR ---
RN OPENING NOTES PATIENT IS INTUBATED, ON VENT AC 14, TV 500, 40% FIO2, PEEP 2. SEDATED ON DIPRIVAN 35 MCG/KG/MIN, NEOSYNEPHRINE 3 MCG/KG/MIN, LEVOPHED 0.2 MCG/KG/MIN FOR BLOOD PRESSURE SUPPORT. HAS A LINE, CENTRAL LINE, AND PERIPHERAL LINE. ON COOLING MACHINE. HAS MUNOZ CATHETER, NGT TO CONTINOUS COOLING MACHINE. WILL CONTINUE TO MONITOR.
[2023-01-15] MEDS ORDERED: AMIODARONE 450 MG in IV D5W 241 ML IV PRN (08:00)
[2023-01-15] MEDS ORDERED: AMIODARONE 150 MG in IV D5W 100 ML IV ONE (08:00)
[2023-01-15] MEDS ORDERED: Magnesium 1 GM/2 ML VIAL IV ONE (08:00)
[2023-01-15] MEDS ORDERED: LEVETIRACETAM (500MG) 1,000 MG in IV NS 0.9% 100 ML IV SCH (08:00)
[2023-01-15] MEDS: VASOPRESSIN INJ 40 UNIT in IV NS 0.9% 38 ML IV PRN ×2 (08:13→15:24)
[2023-01-15] MEDS: Magnesium 1GM/D5W 100ML PREMIX 100 ML IV SCH ×2 (08:15→09:26)
[2023-01-15] MEDS ORDERED: KEPPRA 500 MG in IV NS 100 ML IV SCH ×2 (08:30→09:00)
[2023-01-15] MEDS: MUPIROCIN OINT 2% 22 GM TUBE NS SCH (08:34)
[2023-01-15] MEDS: CLOTRIMAZOLE 1% 15 GM TUBE TP SCH ×2 (08:35→08:36)
[2023-01-15] MEDS: NEOMY SULF/BACITRAC ZN/POLY 15 GM TUBE TP SCH (08:36)
[2023-01-15] MEDS: FAMOTIDINE (20 MG) 20 MG TABLET GT SCH (08:37)
[2023-01-15] MEDS: PREGABALIN 25 MG CAPSULE GT SCH (08:50)
--- NOTE | 2023-01-15 08:50 | NUR ---
HELD LYRICA, PATIENT IS UNRESPONSIVE
[2023-01-15 08:51] LABS: ABG BASE EXCESS -11.7 mmol/L; ABG OXYGEN SATURATION 96.8 % (92.0-98.5); ABG PCO2 22.8 mmHg (35.0-45.0); ABG PH 7.342 (7.350-7.450); ABG PO2 97.9 mmHg (75.0-100.0); AaDO2 161.1 mmHg; COHb 0.7 % (0.5-1.5); MetHb 0.2 % (0.0-1.5); O2Hb 95.9 % (94.0-97.0); SITE, ABG A-Line
[2023-01-15] MEDS ORDERED: DEXTROSE 50%-WATER 50 ML DISP.SYRIN IVP STA (08:54)
[2023-01-15] MEDS ORDERED: SODIUM POLYSTYRENE SULFONATE 15 G/60 ML BOTTLE NG STA (08:54)
[2023-01-15] MEDS ORDERED: TAMSULOSIN 0.4 MG CAP.SR.24H GT SCH (09:00)
[2023-01-15] MEDS ORDERED: PROSOURCE / PROSTAT (PYXIS) 30 ML UDC GT SCH (09:00)
[2023-01-15] MEDS ORDERED: predniSONE 20 MG TABLET GT SCH (09:00)
[2023-01-15] MEDS ORDERED: INSULIN REGULAR, HUMAN 100 UNIT/ML 3 ML VIAL IV ONE (09:00)
[2023-01-15] MEDS: SILVER SULFADIAZINE CREAM 25 GM TUBE TP SCH (09:31)
[2023-01-15] MEDS ORDERED: SODIUM POLYSTYRENE SULF. PWD 15 GM UDC PO SCH (10:30)
[2023-01-15] MEDS ORDERED: SODIUM POLYSTYRENE SULFONATE 15 G/60 ML BOTTLE PO SCH (12:00)
--- NOTE | 2023-01-15 12:38 | NUR ---
RN NOTES INGE CHOI, NEUROLOGY BROKE BEATER MACHINE OPERATOR SPOKE WITH PAM, CHANGED STATUS TO DNR, REFUSED HEMODIALYSIS.
[2023-01-15] MEDS ORDERED: VANCOMYCIN 1 GM in IV D5W 250ml IV SCH (13:00)
[2023-01-15] MEDS ORDERED: PIPERACILLIN /TAZOBACTAM 3.375 G in IV D5W 100 ML IV SCH (13:00)
--- NOTE | 2023-01-15 13:00 | NUR ---
RN NOTES SPOKEN TO REGARDING CODE STATUS , PT , PAM REQUESTING DNR STATUS.
--- NOTE | 2023-01-15 16:58 | NUR ---
ACETYLENE OPERATOR NOTES: PATIENT LOST PULSE, PERIPHERAL AND A-LINE PULSES ABSENT, VERIFIED WITH RN CARLA, NOTIFIED PAM (), AND NURSING SHAREMILKER, AND DR. GARCIA. CALLED [facility]. POST MORTEM CARE DONE
[2023-01-15] MEDS ORDERED: WARFARIN SODIUM 1 MG TABLET GT SCH (17:00)
--- NOTE | 2023-01-15 17:00 | NUR ---
RN NOTES M[facility] NOTIFIED PER PT'S REQUEST , BODY WILL BE PICKED UP IN 2 HOURS PER MORTUARY .
--- NOTE | 2023-01-15 18:19 | NUR ---
RN NOTES SPOKEN TO PT'S AND [facility] REGARDING PT'S WHEELCHAIR, UNABLE TO FIND OUT WHO DOES THE WHEELCHAIR BELONGS TO, WHEELCHAIR PLACED IN STORAGE ROOM WITH PT NAME ON IT , NURSING SUP NOTIFIED .
--- NOTE | 2023-01-15 20:08 | NUR ---
RN/ICU-PT. PICKED UP MY HOME([facility]) AT 1999.
[2023-01-15 22:07] LABS: BAND % (MANUAL) 3 % (0.0-5.0); LYMPHOCYTES % (MANUAL) 10 % (16-48); NEUTROPHILS % (MANUAL) 87 (42-76)
[2023-01-16] MEDS ORDERED: VANCOMYCIN 1.25 GM in IV D5W 250 ML IV SCH (01:00)
== END 2023-01-15 20:00 ==
LOC: ER 15:20 → TELE1 19:44 → MEDSG1 01-12 11:39 → ICU 01-13 10:28
PROVIDERS: ADMIT Nurse Practitioner Acute Care; ATTEND Nurse Practitioner Acute Care
PROC: 5A09457 Assistance with Respiratory Ventilation, 24-96 Consecutive Hours, Continuous Positive Airway Pressure (ICD-10-PCS; 2023-01-12)
PROC: 05H933Z Insertion of Infusion Device into Right Brachial Vein, Percutaneous Approach (ICD-10-PCS; 2023-01-13)
PROC: 5A1945Z Respiratory Ventilation, 24-96 Consecutive Hours (ICD-10-PCS; principal; 2023-01-14)
PROC: 0BH17EZ Insertion of Endotracheal Airway into Trachea, Via Natural or Artificial Opening (ICD-10-PCS; 2023-01-14)
PROC: 03H633Z Insertion of Infusion Device into Left Axillary Artery, Percutaneous Approach (ICD-10-PCS; 2023-01-14)
PROC: 05HN33Z Insertion of Infusion Device into Left Internal Jugular Vein, Percutaneous Approach (ICD-10-PCS; 2023-01-14)
PROC: B544ZZA Ultrasonography of Left Jugular Veins, Guidance (ICD-10-PCS; 2023-01-14)
DX: I13.0 Hypertensive heart and chronic kidney disease with heart failure and stage 1 through stage 4 chronic kidney disease, or unspecified chronic kidney disease (principal); A41.9 Sepsis, unspecified organism; I21.A1 Myocardial infarction type 2; R65.21 Severe sepsis with septic shock; J69.0 Pneumonitis due to inhalation of food and vomit; I50.33 Acute on chronic diastolic (congestive) heart failure; J96.01 Acute respiratory failure with hypoxia; J96.02 Acute respiratory failure with hypercapnia; N17.0 Acute kidney failure with tubular necrosis; E44.0 Moderate protein-calorie malnutrition; F33.2 Major depressive disorder, recurrent severe without psychotic features; J98.11 Atelectasis; J90 Pleural effusion, not elsewhere classified; R62.7 Adult failure to thrive; I25.10 Atherosclerotic heart disease of native coronary artery without angina pectoris; Z66 Do not resuscitate; Z20.822 Contact with and (suspected) exposure to COVID-19; Z95.1 Presence of aortocoronary bypass graft; Z93.3 Colostomy status; Z90.81 Acquired absence of spleen; W34.00XS Accidental discharge from unspecified firearms or gun, sequela; Z79.4 Long term (current) use of insulin; Z79.01 Long term (current) use of anticoagulants; Z79.899 Other long term (current) drug therapy; E11.22 Type 2 diabetes mellitus with diabetic chronic kidney disease; E11.65 Type 2 diabetes mellitus with hyperglycemia; Z53.20 Procedure and treatment not carried out because of patient's decision for unspecified reasons; Z91.51 Personal history of suicidal behavior; E78.5 Hyperlipidemia, unspecified; E88.09 Other disorders of plasma-protein metabolism, not elsewhere classified; D64.9 Anemia, unspecified; I42.9 Cardiomyopathy, unspecified; I45.10 Unspecified right bundle-branch block; G40.409 Other generalized epilepsy and epileptic syndromes, not intractable, without status epilepticus; E87.5 Hyperkalemia; E66.9 Obesity, unspecified; Z68.34 Body mass index [BMI] 34.0-34.9, adult; I48.0 Paroxysmal atrial fibrillation; I87.2 Venous insufficiency (chronic) (peripheral); N18.9 Chronic kidney disease, unspecified; N40.0 Benign prostatic hyperplasia without lower urinary tract symptoms; S90.822A Blister (nonthermal), left foot, initial encounter; Z91.199 Patient's noncompliance with other medical treatment and regimen due to unspecified reason; I70.0 Atherosclerosis of aorta; F39 Unspecified mood [affective] disorder; G47.33 Obstructive sleep apnea (adult) (pediatric); R41.9 Unspecified symptoms and signs involving cognitive functions and awareness; R41.0 Disorientation, unspecified
CPT/HCPCS: 31720; 36410; 36415; 36600; 71045-TC; 76770-TC; 80048-TC; 80061-TC; 80076-TC; 82533; 82803-TC; 82962-TC; 83605-TC; 83735-TC; 83880; 84100-TC; 84132-TC; 84484-TC; 85025-TC; 85027-TC; 85610-TC; 85730-TC; 87040-TC; 87081-TC; 93307-TC; 94002-TC; 94003-TC; 94799-TC; 97110-TC; 97112-TC; 97116-TC; 97530-TC; A4223; A4349; A6253; A6403; C9803; G0378; J0282; J1650; J1720; J1815; J1940; J1953; J2060; J2370; J2543; J2920; J2930; J3370; J3475; J3490; J7030; J7040; J7050; J7060